=== PATIENT | female | born 1965 | race Caucasian/White ===

== ENCOUNTER 2016-12-25 09:07 | Day surgery (SDC) | payer OTHER ==
[~2016-12-25] VITALS: Ht 152.4 cm; Wt 76.5 kg
[~2016-12-25 09:07] MED LIST: HYDR-3498 PO; ONDA4TAB35 PO
[2016-12-25 09:44] VITALS: Ht 152.4 cm; Wt 76.5 kg
[2016-12-25] MEDS ORDERED: ATOR40TA68 PO (09:48)
[2016-12-25 09:55] VITALS: BP 122/63; PULSE 67; RESP 11
[2016-12-25] MEDS ORDERED: MIDAZOLAM 1 MG/ML 2 ML INJ ONE ×3 (10:39→10:40)
[2016-12-25] MEDS ORDERED: FENTAnyl 50 MCG/ML VIAL ONE (10:39)
[2016-12-25 11:12] VITALS: BP 110/69; PULSE 66; RESP 12
--- NOTE | 2016-12-25 11:40 | GILP ---
DATE OF PROCEDURE: NAME OF PROCEDURES: Colonoscopy and biopsy. SURGEON: Pat Corona MD PREOPERATIVE DIAGNOSIS: Screening colonoscopy. POSTOPERATIVE DIAGNOSES 1. Colonoscopy all the way to the cecum. 2. Small sigmoid colon polyp was removed using the biopsy forceps. 3. Internal hemorrhoids. INDICATION FOR THE PROCEDURE: Mr. Madhuri Coles is a 51-year-old female patient who was scheduled for screening colonoscopy. The procedure and possible complications are well explained to the patient. The patient understood and consented to the procedure. DESCRIPTION OF PROCEDURE: Under the influence of fentanyl and Versed, the colonoscope was carefully introduced in the rectum and under direct vision, it was advanced all the way to the cecum. FINDINGS: The patient had a small sigmoid colon polyp and it was removed using the biopsy forceps. The patient was noted to have internal hemorrhoids. She tolerated the procedure very well and there was no complication from the procedure. At the end of the procedures, she was awake with stable vital signs and she was discharged home to the care of her family. IMPRESSION: 1. Colonoscopy all the way to the cecum. 2. Small sigmoid colon polyp was removed using the biopsy forceps. 3. Internal hemorrhoids. PLAN: 1. Await histopathology report. 2. Next screening colonoscopy in 10 years. Dictated By: PAT CLEMENTS/MAJOR Conf#: [id number] DID#: [id number]
== END 2016-12-25 13:34 | disposition home or self-care (01) ==
LOC: GIL 09:07
PROVIDERS: ATTEND Internal Medicine Gastroenterology
DX: Z12.11 Encounter for screening for malignant neoplasm of colon (principal); D12.5 Benign neoplasm of sigmoid colon
CPT/HCPCS: 45380; 88305; J2250; J3010; Z7610

== ENCOUNTER 2017-02-11 05:26 | Day surgery (SDC) | payer OTHER ==
[~2017-02-11] VITALS: Ht 142.2 cm; Wt 77.3 kg
[~2017-02-11 05:26] MED LIST changes: +ATOR40TA68 PO; -HYDR-3498 PO; -ONDA4TAB35 PO
[2017-02-11 06:39] VITALS: Ht 142.2 cm; Wt 77.3 kg
[2017-02-11] MEDS ORDERED: ASPI81TA3 PO (06:45)
[2017-02-11] MEDS ORDERED: NASOCORT (06:45)
[2017-02-11] MEDS ORDERED: OMEP40CA6 PO (06:45)
[2017-02-11 07:23] VITALS: BP 115/66; PULSE 62; RESP 20
[2017-02-11] MEDS ORDERED: MIDAZOLAM 1 MG/ML 2 ML INJ ONE (07:43)
[2017-02-11] MEDS ORDERED: FENTAnyl 50 MCG/ML VIAL ONE (07:43)
[2017-02-11 08:05] VITALS: BP 111/67; RESP 20
--- NOTE | 2017-02-11 12:37 | GILP ---
DATE OF PROCEDURE: NAME OF PROCEDURE: Esophagogastroduodenoscopy and biopsy. SURGEON: Keli Corona MD PREOPERATIVE DIAGNOSIS: Gastroesophageal reflux disease. POSTOPERATIVE DIAGNOSES: 1. Hiatal hernia. 2. Gastroesophageal reflux disease. 3. Gastritis with erosions. 4. Gastric mucosal biopsies were taken for Helicobacter pylori test. INDICATION FOR THE PROCEDURE: Ms. Madhuri Coles is a 51-year-old female patient who had chronic h eartburn with soreness in the throat and hoarseness of the voice, not responding to therapy. The pa nneka was scheduled for endoscopic examination for further evaluation. The procedure and possible complications are well explained to the patient, she understood and conse nted to the procedure. DESCRIPTION OF PROCEDURE: Under the influence of fentanyl and Versed, the gastroscope was carefully introduced into the esophagus and under direct vision, it was advanced to the stomach and through t he pylorus into the duodenal bulb and descending duodenum. FINDINGS: ESOPHAGUS: The patient had hiatal hernia and gastroesophageal reflux disease. STOMACH: She had gastritis with erosions. Gastric mucosal biopsies were taken for H pylori test. DUODENUM: Normal. She tolerated the procedure very well and there was no complication from the procedure. At the end of the procedures, she was awake with stable vital signs, and she was discharged home to the care of her family. IMPRESSION: 1. Hiatal hernia. 2. Gastroesophageal reflux disease. 3. Gastritis with erosions. 4. Gastric mucosal biopsies were taken for Helicobacter pylori test. PLAN: 1. Continue omeprazole. 2. Add Zantac 300 mg p.o. at bedtime. 3. Await H pylori test report. Dictated By: KELI CLEMENTS/MAJOR Conf#: [id number] DID#: [id number]
== END 2017-02-11 09:16 | disposition home or self-care (01) ==
LOC: GIL 05:26
PROVIDERS: ATTEND Internal Medicine Gastroenterology
DX: K44.9 Diaphragmatic hernia without obstruction or gangrene (principal); B96.81 Helicobacter pylori [H. pylori] as the cause of diseases classified elsewhere; K21.9 Gastro-esophageal reflux disease without esophagitis; K29.60 Other gastritis without bleeding
CPT/HCPCS: 43239; 87081; J2250; J3010; Z7610

== ENCOUNTER 2017-03-28 09:58 | Emergency (ER) | payer OTHER ==
[~2017-03-28] VITALS: Ht 152.4 cm; Wt 79.0 kg
[~2017-03-28 09:58] MED LIST changes: +ASPI81TA3 PO; +NASOCORT; +OMEP40CA6 PO
[2017-03-28 10:01] VITALS: Ht 152.4 cm; Wt 79.0 kg
[2017-03-28] MEDS ORDERED: TRAM50TA2 PO (10:49)
[2017-03-28] MEDS ORDERED: FURO-110 PO (10:49)
[2017-03-28 11:00] VITALS: BP 132/65; PULSE 81; RESP 20; TEMP 98.6
--- NOTE | 2017-03-28 11:03 | ERD ---
ER Documentation Chief Complaint Date/Time DATE: 03/28/17 TIME: 10:55 Chief Complaint Complains of leg pain and swelling x 2 weeks HPI This is a 51-year-old female who presents the emergency department today with her daughter complaining of leg pain and swelling in both of her legs for the past 2 weeks. States that the swelling occurs mostly in the afternoon he gets worse at night and the pain goes all the way up her legs.. States she has been taking Naprosyn with limited improvement in pain. States that she has an appointment in [address] Dickerson and has her regularly scheduled appointments every several months. States that she usually gets blood work done before her appointments. Denies any chest pain, shortness of breath, fevers or chills. ROS All systems reviewed and are negative except as per history of present illness. Medications Home Meds Active Scripts Tramadol HCl (Tramadol HCl) 50 Mg Tablet, 50 MG PO Q4 Y for PAIN, #20 TAB Prov:RANDALL GRAHAM PA-C 03/28/17 Furosemide* (Lasix*) 20 Mg Tablet, 20 MG PO DAILY, #20 TAB Prov:RANDALL GRAHAM PA-C 03/28/17 Reported Medications [Nasocort] No Conflict Check, 2 PUFFS 02/11/17 Omeprazole* (Omeprazole*) 40 Mg Capsule.dr, 40 MG PO DAILY, #30 CAP 02/11/17 Aspirin* (Aspirin* Chew) 81 Mg Tab.chew, 81 MG PO DAILY, TAB.CHEW 02/11/17 Atorvastatin* (Atorvastatin*) 40 Mg Tablet, 40 MG PO QHS, #30 TAB 12/25/16 Allergies Allergies: Coded Allergies: No Known Drug Allergies (Verified Allergy, Unknown, 12/25/16) PMhx/Soc History of Surgery: No Anesthesia Reaction: No Hx Neurological Disorder: No Hx Respiratory Disorders: Yes (ALLERGY) Hx Cardiac Disorders: No Hx Psychiatric Problems: No Hx Miscellaneous Medical Probl: Yes (HYPERLIPEDEMIA) Hx Alcohol Use: No Hx Substance Use: No Hx Tobacco Use: No Physical Exam Vitals Vital Signs Date Time Temp Pulse Resp B/P Pulse Ox O2 Delivery O2 Flow Rate FiO2 03/28/17 10:01 98.3 72 20 113/74 98 Physical Exam Const: No acute distress Head: Atraumatic Eyes: Normal Conjunctiva ENT: Normal External Ears, Nose and Mouth. Neck: Full range of motion..~ No meningismus. Resp: Clear to auscultation bilaterally Cardio: Regular rate and rhythm, no murmurs Abd: Soft, non tender, non distended. Normal bowel sounds Skin: No petechiae or rashes Ext: Bilateral legs with no obvious deformity. No effusion. No ecchymosis. Swelling bilaterally in both feet. Pulses 2+. Distal neurovascularly intact. No erythema or warmth. Nontender gastroc. Full active range of motion knee and ankle Neur: Awake and alert Psych: Normal Mood and Affect Procedures/MDM This a 51-year-old female who presents the emergency department today with her daughter for bilateral leg pain and swelling for the past 2 weeks. Patient indicated that the swelling occurs mostly in the afternoon and gets worse at night. Patient is afebrile and otherwise well-appearing. With the exception of swelling in both of her feet her physical exam is otherwise benign. She has no calf pain or tenderness. She is full active range of motion in her joints. There is no erythema or warmth or redness. I do not feel the patient requires further laboratory workup or imaging. Patient denied any chest pain or shortness of breath. She is not tachycardic. Her oxygen saturations 98%. I have low suspicion for PE, pleural effusion, abscess, pneumothorax, DVT. Do not feel that she requires an ultrasound. Patient did have some swelling in both of her feet however she had good pulses. She has had no trauma. Do not feel that she requires imaging at this time. Low suspicion for acute fracture dislocation. I did consider a differential diagnosis of arthritis. Low suspicion for septic joint or gout Patient symptoms at this time most consistent with bilateral lower extremity swelling, possibly due to electrolyte imbalance or cardiac or renal insufficiency .I have explained this to the patient. Patient's swelling is reportedly worse in the afternoons and evenings. I have discussed the patient with Dr. Amaro he has recommended that the patient be given Lasix once a day until her appointment with Dr. Dickerson. I have explained to the patient that she may have increased urination and that she would need her labs checked as planned prior to appointment with Dr. Dickerson. Patient was also given a prescription for short course of tramadol for her pain. She may take that or her Naprosyn. At this time the patient is stable for discharge and outpatient management. Patient should follow up with their PCP in the next 1-2 days. They may return to the emergency department sooner for any persistent or worsening of symptoms. Patient understood and agreed with the plan. Departure Diagnosis: Primary Impression: Localized swelling of both lower legs Condition: Fair Patient Instructions: Reducing Knee Pain and Swelling Additional Instructions: Llame al doctor MAANA y neto kitty NELLA PARA DENTRO DE 1-2 BARCLAY.Dgale a la secretaria que nosotros le instruimos hacer esta nella.Avise o llame si herrmann condicin se empeora antes de la nella. Regresa aqui si peor o no mejor. Make an appointment sooner with Dr. Pinoo Get your regular blood work as planned Take Lasix as prescribed Elevate limbs Take tramadol for severe pain otherwise take Naprosyn or Tylenol or Motrin RANDALL GRAHAM PA-C Mar 28, 2017 11:03
== END 2017-03-28 11:28 | disposition home or self-care (01) ==
LOC: FTE 09:58
DX: R22.42 Localized swelling, mass and lump, left lower limb (principal); R22.41 Localized swelling, mass and lump, right lower limb; Z79.82 Long term (current) use of aspirin
CPT/HCPCS: 99284